=== PATIENT | male | born 1980 | race Caucasian/White ===

== ENCOUNTER 2020-07-21 11:54 | Emergency (ER) | payer MEDICARE, MEDICAID ==
--- NOTE | 2020-07-21 12:11 | EDM.PDOC ---
ED HPI GENERAL MEDICAL PROBLEM - General Chief Complaint: General Stated Complaint: Blood in cath Time Seen by Provider: 07/21/20 12:05 Source of Information: Reports: Patient History Limitations: Reports: No Limitations - History of Present Illness INITIAL COMMENTS - FREE TEXT/NARRATIVE: Ramon, 40-year-old male, had Nergo catheter replaced at the facility last evening. Had roland blood return which has persisted longer than usual despite irrigation practice. Today he has developed tachycardia denying any chest pain, but sustained tachycardia with prolonged roland hematuria after Negro catheter placement. He presents here for evaluation. He has remained Covid negative for routine testing at the facility. He denies fever chills cough or any other Covid 19 symptom. Onset: Sudden Onset Date: 07/20/20 Onset Time: 18:00 Duration: Hour(s):, Constant Location: Reports: Pelvis - Related Data Allergies Allergy/AdvReac Type Severity Reaction Status Date / Time lisdexamfetamine Allergy Rash Verified 07/21/20 12:41 [From Vyvanse] methylphenidate Allergy Rash Verified 07/21/20 12:41 [From Ritalin] montelukast [From Singulair] Allergy Shortness Verified 07/21/20 12:41 of Breath sertraline Allergy Rash Verified 07/21/20 12:41 tramadol Allergy Rash Verified 07/21/20 12:41 Home Meds: Home Meds ARIPiprazole [Abilify] 10 mg PO DAILY 07/21/20 [History] Acetaminophen 650 mg PO ASDIRECTED PRN 07/21/20 [History] Acetaminophen 650 mg PO DAILY@12 07/21/20 [History] Aspirin 325 mg PO DAILY 07/21/20 [History] Bisacodyl [Gentle Laxative] 10 mg RC ASDIRECTED PRN 07/21/20 [History] Cyclobenzaprine HCl 10 mg PO BID 07/21/20 [History] Furosemide 20 mg PO DAILY 07/21/20 [History] Ibuprofen [Ibu] 600 mg PO Q12HR 07/21/20 [History] Levothyroxine Sodium [Synthroid] 150 mcg PO DAILY 07/21/20 [History] Loratadine 10 mg PO DAILY 07/21/20 [History] Magnesium Hydroxide [Milk of Magnesia] 400 mg PO ASDIRECTED PRN 07/21/20 [History] Miconazole 1 applic TOP BID 07/21/20 [History] Ondansetron [Zofran ODT] 4 mg PO ASDIRECTED PRN 07/21/20 [History] PARoxetine [Paxil] 20 mg PO DAILY 07/21/20 [History] Sennosides/Docusate Sodium [Senna Plus 8.6-50 mg Tablet] 1 tab PO BID 07/21/20 [History] buPROPion HCL [Wellbutrin Xl] 150 mg PO DAILY 07/21/20 [History] cloNIDine [Catapres] 0.05 mg PO DAILY 07/21/20 [History] cloNIDine [Catapres] 0.1 mg PO BEDTIME 07/21/20 [History] guaiFENesin [Mucinex] 600 mg PO BID 07/21/20 [History] lidocaine HCL [Lidocaine HCl] 1 applic TOP ASDIRECTED PRN 07/21/20 [History] polyethylene glycoL 3350 [MiraLAX] 17 gm PO DAILY 07/21/20 [History] traZODone HCl [Trazodone HCl] 50 mg PO BEDTIME 07/21/20 [History] Past Medical History HEENT History: Reports: None Respiratory History: Reports: Asthma Genitourinary History: Reports: Retention, Urinary Musculoskeletal History: Reports: Back Pain, Chronic (Secondary of the fibromatosis growth.) Neurological History: Reports: Other (See Below) (Neuro fibromatosis) Psychiatric History: Reports: Depression Endocrine/Metabolic History: Reports: Hypothyroidism, Other (See Below) (Hypoglycemia) - Past Surgical History HEENT Surgical History: Reports: None GI Surgical History: Reports: None Musculoskeletal Surgical History: Reports: Other (See Below) (Right lower extremity amputation) - Past Imaging History Past Imaging History: Reports: MRI, Xray - History Comment History Comment: 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 Social & Family History - Family History Family Medical History: Noncontributory - Tobacco Use Tobacco Use Status *Q: Former Tobacco User - Caffeine Use Caffeine Use: Reports: Coffee, Soda - Alcohol Use Alcohol Use History: No - Recreational Drug Use Recreational Drug Use: No Drug Use in Last 12 Months: No - Living Situation & Occupation Living situation: Reports: Single, Extended Care Facility Occupation: Unemployed ED ROS GENERAL - Review of Systems Review Of Systems: See Below Constitutional: Reports: No Symptoms HEENT: Reports: No Symptoms Respiratory: Reports: No Symptoms Cardiovascular: Reports: No Symptoms Endocrine: Reports: No Symptoms GI/Abdominal: Reports: No Symptoms : Reports: Hematuria, Urinary Retention Musculoskeletal: Reports: No Symptoms Skin: Reports: No Symptoms Neurological: Reports: No Symptoms Psychiatric: Reports: No Symptoms Hematologic/Lymphatic: Reports: No Symptoms ED EXAM, GENERAL - Physical Exam Exam: See Below Free Text/Narrative:: Alert, oriented, in no acute distress. He comments that this typically has happened but not lasted as long, with catheter replacement, routine schedule changes. HEENT negative discharge or deformity. Neck is soft supple no lymphadenopathy no rigidity. Thorax is clear throughout with no wheezes, no crackles. Cardiac is S1-S2 tachycardic with no appreciated murmur. There is no flank pain, abdomen is soft bowel sounds are present. Large fibromatosis to the buttock region limiting his positioning for comfort and pressure. Left lower extremity is wrapped secondary of chronic cares. Right leg amputation. Negro catheter shows roland blood to the tubing and in the bag with minimal urine at this time as it was drained prior to the transport. Denies any pain or discomfort during the catheter change nor at this time. Denies any lightheadedness. Penis examination when catheter being replaced, shows a granulated tissue to the right inferior aspect of the meatus with a oozing of roland blood after catheter was removed. Nursing staff reports no discomfort or difficulty passing the catheter nor on removal of the existing catheter. Urine culture was obtained from the fresh urinary catheter and collection device. #1 Interpretation EKG Date: 07/21/20 Time: 12:39 Rhythm: NSR Rate (Beats/Min): 128 [place]: Normal P-Wave: Present QRS: Normal ST-T: Normal QT: Normal Comparison: NA - No Prior EKG Course - Vital Signs Last Recorded V/S: Last Vital Signs Temp 36.8 C 07/21/20 11:58 Pulse 129 H 07/21/20 13:25 Resp 20 07/21/20 13:25 BP 148/87 H 07/21/20 13:28 Pulse Ox 100 07/21/20 13:25 - Orders/Labs/Meds Orders: Active Orders 24 hr Category Date Time Status Bladder Scan [RC] ASDIRECTED Care 07/21/20 13:34 Active EKG Documentation Completion [RC] ASDIRECTED Care 07/21/20 12:07 Active Insert Negro Catheter [Insert Urinary Catheter] [OM.PC] Care 07/21/20 14:00 Ordered Q24H Urinary Catheter Assessment [RC] ASDIRECTED Care 07/21/20 13:46 Active Urinary Catheter Removal [RC] PER UNIT ROUTINE Care 07/21/20 13:46 Active UA RFX IRISH AND CULT IF INDIC [URIN] Urgent Lab 07/21/20 13:12 Ordered EKG 12 Lead [EK] Urgent Ther 07/21/20 12:06 Ordered Labs: Laboratory Tests 07/21/20 07/21/20 07/21/20 Range/Units 12:44 12:44 12:44 WBC 18.38 H (5.00-10.00) 10^3/uL RBC 4.87 (4.50-6.00) 10^6/uL Hgb 14.5 (13.0-17.0) g/dL Hct 44.1 (40.0-52.0) % MCV 90.6 (82.0-92.0) fL MCH 29.8 (27.0-31.0) pg MCHC 32.9 (32.0-36.0) g/dL RDW 15.2 H (11.5-14.5) % Plt Count 321 (150-400) 10^3/uL MPV 7.9 (7.4-10.4) fL Immature Gran % (Auto) 0.2 (0.0-5.0) % Neut % (Auto) 86.4 H (50.0-70.0) % Lymph % (Auto) 5.3 L (20.0-40.0) % [place] % (Auto) 5.4 (2.0-8.0) % Eos % (Auto) 2.3 (1.0-3.0) % Baso % (Auto) 0.4 (0.0-1.0) % Neut # (Auto) 15.88 H (2.50-7.00) 10^3/uL Lymph # (Auto) 0.97 L (1.00-4.00) 10^3/uL [place] # (Auto) 0.99 H (0.10-0.80) 10^3/uL Eos # (Auto) 0.43 H (0.10-0.30) 10^3/uL Baso # (Auto) 0.07 (0.00-0.10) 10^3/uL Immature Gran # (Auto) 0.04 (0.00-0.50) 10^3/uL Sodium 135 L (136-145) mmol/L Potassium 4.4 (3.3-5.3) mmol/L Chloride 98 (98-115) mmol/L Carbon Dioxide 27.9 (21.0-32.0) mmol/L Anion Gap 13.5 (5-15) mmol/L BUN 12 (6-25) mg/dL Creatinine 0.58 (0.51-1.17) mg/dL Est Cr Clr Drug Dosing 156.70 mL/min Estimated GFR (MDRD) > 60 mL/min Glucose 104 H (75 - 99) mg/dL Lactic Acid 1.6 (0.4-2.0) mmol/L Calcium 9.1 (8.7-10.3) mg/dL Total Bilirubin 0.5 (0.2-1.0) mg/dL AST 30 (15-37) U/L ALT 39 (12-78) U/L Alkaline Phosphatase 144 H (46-116) IU/L Troponin I 0.07 (0.00-0.070) ng/mL Total Protein 8.0 (6.4-8.2) g/dL Albumin 3.92 (3.00-4.80) g/dL - Re-Assessments/Exams Free Text/Narrative Re-Assessment/Exam: 07/21/20 13:47 Bladder scan performed secondary of irrigation attempt failing to return a significant amount. Scan shows 979 mL per scanner computations on measurement. We will remove and replace Negro catheter at this time. Lactic acid still pending as well as urinalysis secondary of unable to obtain from previous catheter. Free Text/Narrative Re-Assessment/Exam: 07/21/20 13:57 At this time Negro catheter was removed, slight oozing of blood continues from the urethra the meatus with what appears to be a slight tissue protuberance to the right side of the urethral opening. Free Text/Narrative Re-Assessment/Exam: 07/21/20 14:57 Phone call placed essential 1 call, after [facility] declined transfer secondary of staffed bed. Dr. Yuen [facility] emergency department graciously accepts transfer for direct admission with hospitalist admitting and urology consult available. Discussed hematuria history and no urology work-up found in [facility] chart. Departure - Departure Time of Disposition: 15:02 Disposition: DC/Tfer to Acute Hospital 02 Condition: Fair Clinical Impression: Chronic retention of urine, Negro catheter present, Hematuria, Tachycardia with heart rate 121-140 beats per minute - Discharge Information *PRESCRIPTION DRUG MONITORING PROGRAM REVIEWED*: Not Applicable *COPY OF PRESCRIPTION DRUG MONITORING REPORT IN PATIENT EDVIN: Not Applicable Referrals: Rogelio Gant NP [Primary Care Provider] - Funmi Garrett PA-C [Physician [employer]] - Forms: ED Department Discharge, Interfacility Transfer EMTALA Additional Instructions: Transfer arranged via ambulance, [facility], for a direct admission to [facility] in [place]. Sepsis Event Note (ED) - Evaluation Sepsis Screening Result: No Definite Risk - Focused Exam Vital Signs: Vital Signs Temp Pulse Resp BP Pulse Ox 07/21/20 13:28 148/87 H 07/21/20 13:25 129 H 20 153/104 H 100 07/21/20 11:58 36.8 C 133 H 20 149/92 H 96 ED Communication - ED Communication Date/Time Date: 07/21/20 Time Called: 14:17 - Discussed Case With (1) Discussed Case With (1): Other Provider Person/s Notified (1): rogelio gant (agrees to transfer) Person/s Notified (2): Dr Yuen [facility] (accepts transfer) Date: 07/21/20 Time Called: 14:45 - Discussed Case With (2) Discussed Case With (2): Other Person/s Notified (3): [facility] (Denies any transfer other than Stroke, Stemi, and Trauma.) - Problem List & Annotations (1) Chronic retention of urine SNOMED Code(s): 529360518 Code(s): R33.9 - RETENTION OF URINE, UNSPECIFIED Status: Chronic Priority: Medium (2) Negro catheter present SNOMED Code(s): 775988268 Code(s): Z97.8 - PRESENCE OF OTHER SPECIFIED DEVICES Status: Acute Priority: High (3) Hematuria SNOMED Code(s): 36478997 Code(s): R31.9 - HEMATURIA, UNSPECIFIED Status: Acute Priority: High Qualifiers: Hematuria type: gross Qualified Code(s): R31.0 - Gross hematuria (4) Tachycardia with heart rate 121-140 beats per minute SNOMED Code(s): 7723273 Code(s): R00.0 - TACHYCARDIA, UNSPECIFIED Status: Acute Priority: High - Problem List Review Problem List Initiated/Reviewed/Updated: Yes - My Orders Last 24 Hours: My Active Orders 07/21/20 12:06 EKG 12 Lead [EK] Urgent 07/21/20 12:07 EKG Documentation Completion [RC] ASDIRECTED 07/21/20 13:12 UA RFX IRISH AND CULT IF INDIC [URIN] Urgent 07/21/20 13:34 Bladder Scan [RC] ASDIRECTED 07/21/20 13:46 Urinary Catheter Assessment [RC] ASDIRECTED Urinary Catheter Removal [RC] PER UNIT ROUTINE 07/21/20 14:00 Insert Negro Catheter [Insert Urinary Catheter] [OM.PC] Q24H - Assessment/Plan Last 24 Hours: My Active Orders 07/21/20 12:06 EKG 12 Lead [EK] Urgent 07/21/20 12:07 EKG Documentation Completion [RC] ASDIRECTED 07/21/20 13:12 UA RFX IRISH AND CULT IF INDIC [URIN] Urgent 07/21/20 13:34 Bladder Scan [RC] ASDIRECTED 07/21/20 13:46 Urinary Catheter Assessment [RC] ASDIRECTED Urinary Catheter Removal [RC] PER UNIT ROUTINE 07/21/20 14:00 Insert Negro Catheter [Insert Urinary Catheter] [OM.PC] Q24H Plan: Urine culture is pending. Transfer arranged via ambulance, [facility], for a direct admission to [facility] in [place].
[2020-07-21 13:17] LABS: ANION GAP 13.5 mmol/L (5-15); CHLORIDE,CL 98 mmol/L (98-115); SODIUM,NA 135 mmol/L (136-145)
== END 2020-07-21 16:30 ==
LOC: KA.ED 11:54
DX: R31.9 Hematuria, unspecified (principal); R00.0 Tachycardia, unspecified; R33.9 Retention of urine, unspecified; J45.909 Unspecified asthma, uncomplicated; E03.9 Hypothyroidism, unspecified; F32.9 Major depressive disorder, single episode, unspecified; Z88.8 Allergy status to other drugs, medicaments and biological substances; Z88.6 Allergy status to analgesic agent; Z79.82 Long term (current) use of aspirin; Z79.899 Other long term (current) drug therapy; Z87.891 Personal history of nicotine dependence
CPT/HCPCS: 36415; 51702; 80053; 81003; 83605; 84484; 85025; 87086; 93005; 99285-25

== ENCOUNTER 2020-07-27 12:06 | Emergency (ER) | payer MEDICARE, MEDICAID ==
--- NOTE | 2020-07-27 12:20 | EDM.PDOC ---
ED HPI GENERAL MEDICAL PROBLEM - General Stated Complaint: CATHETER ISSUES Time Seen by Provider: 07/27/20 12:10 Source of Information: Reports: Patient History Limitations: Reports: No Limitations - History of Present Illness INITIAL COMMENTS - FREE TEXT/NARRATIVE: Patient presents with diminished urine output and hematuria. He has a gao and a suprapubic catheter in place. They were both placed 6 days ago in surgery with a urologist. He just returned yesterday from [facility] to the [place]. His PCP discussed with me that he had bleeding from around the suprapubic catheter and the abdomen was hard; he feels he will likely need to go back to [facility]. He started Cipro 500 bid for UTI yesterday. - Related Data Allergies Allergy/AdvReac Type Severity Reaction Status Date / Time lisdexamfetamine Allergy Rash Verified 07/21/20 12:41 [From Vyvanse] methylphenidate Allergy Rash Verified 07/21/20 12:41 [From Ritalin] montelukast [From Singulair] Allergy Shortness Verified 07/21/20 12:41 of Breath sertraline Allergy Rash Verified 07/21/20 12:41 tramadol Allergy Rash Verified 07/21/20 12:41 Home Meds: Home Meds ARIPiprazole [Abilify] 10 mg PO DAILY 07/21/20 [History] Acetaminophen 650 mg PO ASDIRECTED PRN 07/21/20 [History] Acetaminophen 650 mg PO DAILY@12 07/21/20 [History] Aspirin 325 mg PO DAILY 07/21/20 [History] Bisacodyl [Gentle Laxative] 10 mg RC ASDIRECTED PRN 07/21/20 [History] Cyclobenzaprine HCl 10 mg PO BID 07/21/20 [History] Furosemide 20 mg PO DAILY 07/21/20 [History] Ibuprofen [Ibu] 600 mg PO Q12HR 07/21/20 [History] Levothyroxine Sodium [Synthroid] 150 mcg PO DAILY 07/21/20 [History] Loratadine 10 mg PO DAILY 07/21/20 [History] Magnesium Hydroxide [Milk of Magnesia] 400 mg PO ASDIRECTED PRN 07/21/20 [History] Miconazole 1 applic TOP BID 07/21/20 [History] Ondansetron [Zofran ODT] 4 mg PO ASDIRECTED PRN 07/21/20 [History] PARoxetine [Paxil] 20 mg PO DAILY 07/21/20 [History] Sennosides/Docusate Sodium [Senna Plus 8.6-50 mg Tablet] 1 tab PO BID 07/21/20 [History] buPROPion HCL [Wellbutrin Xl] 150 mg PO DAILY 07/21/20 [History] cloNIDine [Catapres] 0.05 mg PO DAILY 07/21/20 [History] cloNIDine [Catapres] 0.1 mg PO BEDTIME 07/21/20 [History] guaiFENesin [Mucinex] 600 mg PO BID 07/21/20 [History] lidocaine HCL [Lidocaine HCl] 1 applic TOP ASDIRECTED PRN 07/21/20 [History] polyethylene glycoL 3350 [MiraLAX] 17 gm PO DAILY 07/21/20 [History] traZODone HCl [Trazodone HCl] 50 mg PO BEDTIME 07/21/20 [History] Past Medical History HEENT History: Reports: None Cardiovascular History: Reports: Hypertension Respiratory History: Reports: Asthma Gastrointestinal History: Reports: Fecal Incontinence Genitourinary History: Reports: Retention, Urinary Musculoskeletal History: Reports: Back Pain, Chronic (Secondary of the fibromatosis growth.) Other Musculoskeletal History: Contraturesof left knee Neurological History: Reports: Other (See Below) (Neuro fibromatosis) Other Neuro History: Neurofibromatosis. Psychiatric History: Reports: Depression Other Psychiatric History: Personality diorder, Endocrine/Metabolic History: Reports: Hypothyroidism, Other (See Below) (Hypoglycemia) Dermatologic History: Reports: Other (See Below) Other Dermatologic History: Unknow skin eruption. 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 Social & Family History - Family History Family Medical History: Noncontributory - Caffeine Use Caffeine Use: Reports: Coffee, Soda - Living Situation & Occupation Living situation: Reports: Single, Extended Care Facility Occupation: Unemployed ED ROS GENERAL - Review of Systems Review Of Systems: See Below Constitutional: Denies: Fever, Weakness HEENT: Reports: No Symptoms Respiratory: Reports: No Symptoms Cardiovascular: Reports: No Symptoms GI/Abdominal: Denies: Abdominal Pain, Nausea, Vomiting : Reports: Hematuria, Urinary Retention Musculoskeletal: Reports: No Symptoms Skin: Reports: No Symptoms Neurological: Reports: No Symptoms Psychiatric: Denies: Agitation, Anxiety, Confusion ED EXAM, RENAL/ - Physical Exam Exam: See Below Exam Limited By: No Limitations General Appearance: Alert, WD/WN, No Apparent Distress Eye Exam: Bilateral Eye: EOMI, Normal Inspection, PERRL Ears: Normal External Exam, Hearing Grossly Normal Nose: Normal Inspection, No Blood Throat/Mouth: Normal Inspection, Normal Lips, Normal Voice, No Airway Compromise Head: Atraumatic, Normocephalic Neck: Normal Inspection, Full Range of Motion Respiratory/Chest: No Respiratory Distress, Lungs Clear, Normal Breath Sounds, No Accessory Muscle Use Cardiovascular: Regular Rate, Rhythm, No Murmur GI/Abdominal: Non-Tender, Distended, Rigid, Other (Abdomen is very firm and distended but not tender to palpation. He says it started earlier today but isn't bothering him at all.) (Male) Exam: Circumcised, Other (small amount of blood around each catheter but very little urine output. What is there is definitely blood tinged.) Back Exam: Normal Inspection Extremities: Other (Right BKA) Neurological: Alert, Oriented, Normal Cognition, No Motor/Sensory Deficits Psychiatric: Normal Affect, Normal Mood Skin Exam: Warm, Dry, Intact, Normal Color, No Rash Course - Vital Signs Last Recorded V/S: Last Vital Signs Temp 97.7 F 07/27/20 12:14 Pulse 103 H 07/27/20 12:14 Resp 18 07/27/20 12:14 BP 125/87 07/27/20 12:14 Pulse Ox 97 07/27/20 12:14 - Orders/Labs/Meds Orders: Active Orders 24 hr Category Date Time Status Sodium Chloride 0.9% [Normal Saline] 50 ml Med 07/27/20 14:30 Active IV ASDIRECTED Medication Orders Sodium Chloride (Normal Saline) 50 mls @ 200 mls/min IV ASDIRECTED BARB Labs: Laboratory Tests 1107/27/20 07/27/20 Range/Units 14:27 14:27 14:27 WBC 20.40 H (5.00-10.00) 10^3/uL RBC 3.28 L (4.50-6.00) 10^6/uL Hgb 9.8 L D (13.0-17.0) g/dL Hct 29.2 L (40.0-52.0) % MCV 89.0 (82.0-92.0) fL MCH 29.9 (27.0-31.0) pg MCHC 33.6 (32.0-36.0) g/dL RDW 17.1 H (11.5-14.5) % Plt Count 540 H D (150-400) 10^3/uL MPV 7.8 (7.4-10.4) fL Immature Gran % (Auto) 4.6 (0.0-5.0) % Neut % (Auto) 73.3 H (50.0-70.0) % Lymph % (Auto) 11.3 L (20.0-40.0) % [place] % (Auto) 7.0 (2.0-8.0) % Eos % (Auto) 3.3 H (1.0-3.0) % Baso % (Auto) 0.5 (0.0-1.0) % Neut # (Auto) 14.95 H (2.50-7.00) 10^3/uL Lymph # (Auto) 2.31 (1.00-4.00) 10^3/uL [place] # (Auto) 1.42 H (0.10-0.80) 10^3/uL Eos # (Auto) 0.68 H (0.10-0.30) 10^3/uL Baso # (Auto) 0.11 H (0.00-0.10) 10^3/uL Immature Gran # (Auto) 0.93 H (0.00-0.50) 10^3/uL Sodium 131 L (136-145) mmol/L Potassium 3.6 (3.3-5.3) mmol/L Chloride 94 L (98-115) mmol/L Carbon Dioxide 24.4 (21.0-32.0) mmol/L Anion Gap 16.2 H (5-15) mmol/L BUN 16 (6-25) mg/dL Creatinine 0.65 (0.51-1.17) mg/dL Est Cr Clr Drug Dosing 139.83 mL/min Estimated GFR (MDRD) > 60 mL/min Glucose 116 H (75 - 99) mg/dL Lactic Acid 1.2 (0.4-2.0) mmol/L Calcium 9.1 (8.7-10.3) mg/dL Specimen Type Urine Color (YELLOW) Urine Appearance (CLEAR) Urine pH (5.0-9.0) Ur Specific [place] (1.005-1.030) Urine Protein (NEGATIVE) mg/dL Urine Glucose (UA) (NEGATIVE) mg/dL Urine Ketones (NEGATIVE) mg/dL Urine Occult Blood (NEGATIVE) Urine Nitrite (NEGATIVE) Urine Bilirubin (NEGATIVE) Urine Urobilinogen (0.2-1.0) E.U./dL Ur Leukocyte Esterase (NEGATIVE) Urine RBC Urine WBC Urinalysis Comment 07/27/20 Range/Units 14:40 WBC (5.00-10.00) 10^3/uL RBC (4.50-6.00) 10^6/uL Hgb (13.0-17.0) g/dL Hct (40.0-52.0) % MCV (82.0-92.0) fL MCH (27.0-31.0) pg MCHC (32.0-36.0) g/dL RDW (11.5-14.5) % Plt Count (150-400) 10^3/uL MPV (7.4-10.4) fL Immature Gran % (Auto) (0.0-5.0) % Neut % (Auto) (50.0-70.0) % Lymph % (Auto) (20.0-40.0) % [place] % (Auto) (2.0-8.0) % Eos % (Auto) (1.0-3.0) % Baso % (Auto) (0.0-1.0) % Neut # (Auto) (2.50-7.00) 10^3/uL Lymph # (Auto) (1.00-4.00) 10^3/uL [place] # (Auto) (0.10-0.80) 10^3/uL Eos # (Auto) (0.10-0.30) 10^3/uL Baso # (Auto) (0.00-0.10) 10^3/uL Immature Gran # (Auto) (0.00-0.50) 10^3/uL Sodium (136-145) mmol/L Potassium (3.3-5.3) mmol/L Chloride (98-115) mmol/L Carbon Dioxide (21.0-32.0) mmol/L Anion Gap (5-15) mmol/L BUN (6-25) mg/dL Creatinine (0.51-1.17) mg/dL Est Cr Clr Drug Dosing mL/min Estimated GFR (MDRD) mL/min Glucose (75 - 99) mg/dL Lactic Acid (0.4-2.0) mmol/L Calcium (8.7-10.3) mg/dL Specimen Type Urincath Urine Color Candice H (YELLOW) Urine Appearance Cloudy H (CLEAR) Urine pH 6.0 (5.0-9.0) Ur Specific [place] >= 1.030 (1.005-1.030) Urine Protein >=300 H (NEGATIVE) mg/dL Urine Glucose (UA) Negative (NEGATIVE) mg/dL Urine Ketones Trace H (NEGATIVE) mg/dL Urine Occult Blood Large H (NEGATIVE) Urine Nitrite Negative (NEGATIVE) Urine Bilirubin Small H (NEGATIVE) Urine Urobilinogen 0.2 (0.2-1.0) E.U./dL Ur Leukocyte Esterase Small H (NEGATIVE) Urine RBC Not Reportable Urine WBC Not Reportable Urinalysis Comment See note Meds: Medications Generic Name Dose Route Start Last Admin Trade Name Freq PRN Reason Stop Dose Admin Sodium Chloride 50 mls @ 200 mls/min 07/27/20 14:30 Normal Saline IV ASDIRECTED BARB Discontinued Medications Generic Name Dose Route Start Last Admin Trade Name Freq PRN Reason Stop Dose Admin Iopamidol 100 ml 07/27/20 14:26 Isovue-370 (76%) IV 07/27/20 14:27 ONETIME ONE - Re-Assessments/Exams Free Text/Narrative Re-Assessment/Exam: 07/27/20 14:19 Gao is back flushed twice without improvement in output. I reviewed his recent notes from [place] and hospital admission/procedure. The NH had flushed the gao as well without return. I discussed findings with patient and that his PCP and I recommend he go back to [facility] to see urology again. He refuses. I discussed all the concerns and strongly encouraged him to go but he refuses and wants to go back to [place]. I asked what he thinks they will do with him there and he says probably send him back here but he will refuse. We will do some lab and CT. 07/27/20 16:[address] shows high-grade bowel obstruction. Discussed findings with patient who agreed to go see a surgeon. I discussed case with [facility] Dr. Shah, ER who accepted for transfer and will make arrangements with his hospitalist and surgeon. Patient will go by ground EMS shortly. Patient still in no pain and stable. Departure - Departure Time of Disposition: 16:05 Disposition: DC/Tfer to Acute Hospital 02 Condition: Good (bowel obstruction) Clinical Impression: Small bowel obstruction, Acute retention of urine Hematuria Qualifiers: Hematuria type: gross Qualified Code(s): R31.0 - Gross hematuria - Discharge Information Sepsis Event Note (ED) - Focused Exam Vital Signs: Vital Signs Temp Pulse Resp BP Pulse Ox 07/27/20 12:14 97.7 F 103 H 18 125/87 97 - My Orders Last 24 Hours: My Active Orders 07/27/20 14:30 Sodium Chloride 0.9% [Normal Saline] 50 ml IV ASDIRECTED - Assessment/Plan Last 24 Hours: My Active Orders 07/27/20 14:30 Sodium Chloride 0.9% [Normal Saline] 50 ml IV ASDIRECTED
[2020-07-27] MEDS ORDERED: Iopamidol 755 Mg/ML 100 ML Bottle IV ONE (14:26)
[2020-07-27] MEDS ORDERED: Sodium Chloride 0.9% 50 ML IV SCH (14:30)
[2020-07-27 14:59] LABS: ANION GAP 16.2 mmol/L (5-15); CHLORIDE,CL 94 mmol/L (98-115); SODIUM,NA 131 mmol/L (136-145)
--- NOTE | 2020-07-27 15:41 | CT ---
[id number] CT/CT Abdomen Pelvis W IV EXAM: CT Abdomen Pelvis W IV CLINICAL DATA: HARD ABDOMEN, HEMATURIA, URINE RETENTION COMPARISON STUDY: December 24, 2019. FINDINGS: Subsegmental atelectasis in both lung bases. Liver, spleen, pancreas, adrenal glands, and kidneys are unremarkable. Cholecystectomy clips in the right upper quadrant. Abnormally dilated and distended loops of fluid-filled small bowel throughout the abdomen. Focal transition from dilated to decompressed bowel in the lower midabdomen. Transition point is located just anterior to the distal abdominal aorta (seen best on series 2 images [id number]). Sliding-type hiatus hernia. Fluid within the hernia sac and esophagus extending beyond the field of view of this examination. Large colonic stool burden. Correlate for constipation/impaction. Left inguinal adenopathy. Suprapubic and Negro catheters within the urinary bladder. Extensive abnormal soft tissue mass, as seen previously consistent with history of neurofibromatosis. Nondisplaced fracture of the acetabulum involving its anterior, inferior, and medial franco. Finding was not seen on most recent imaging of the pelvis dated December 24, 2019. There is evidence of healing, with a small amount of mineralized callus at the fracture site. Additionally there is a nondisplaced right sacral ala fracture not seen previously. Lytic lesion associated with the left sacral ala was seen previously. IMPRESSION: High-grade bowel obstruction with transition point in the lower midabdomen where there is abrupt transition to decompressed small bowel that extends to the ileocecal valve. Surgical consultation recommended. Nondisplaced subacute healing left acetabular fracture not seen on most recent pelvic imaging dated December 24, 2019. Correlate for history of trauma/left hip pain. Additionally, there is a nondisplaced right sacral ala fracture not seen previously. Andrade Barger MD 07/27/20 [id number] Thank you for allowing us to participate in the care of your patient.
== END 2020-07-27 17:00 ==
LOC: KA.ED 12:06
DX: K56.609 Unspecified intestinal obstruction, unspecified as to partial versus complete obstruction (principal); R33.9 Retention of urine, unspecified; R31.9 Hematuria, unspecified; I10 Essential (primary) hypertension; J45.909 Unspecified asthma, uncomplicated; E03.9 Hypothyroidism, unspecified; F32.9 Major depressive disorder, single episode, unspecified; Z88.6 Allergy status to analgesic agent; Z88.8 Allergy status to other drugs, medicaments and biological substances; Z79.82 Long term (current) use of aspirin; Z79.899 Other long term (current) drug therapy; Z89.511 Acquired absence of right leg below knee
CPT/HCPCS: 36415; 74177; 80048; 81001; 83605; 85025; 99285-25; Q9967